=== PATIENT | male | born 1955 | race Caucasian/White ===

== ENCOUNTER 2017-02-25 07:30 | Inpatient (IN) | payer OTHER ==
[2017-02-25] VITALS (16 sets, daily range): BP systolic 124–136; BP diastolic 60–92; PULSE 68–102; RESP 18–20; TEMP 94.5–96.4; O2SAT 100
[2017-02-25] MEDS ORDERED: ceFAZolin 2 GM PREMIX 50 ML ONE ×2 (07:33→11:02)
[2017-02-25] MEDS ORDERED: DIPHTH/TETANUS/ACEL PERTUSSIS (BOOSTER) 0.5 ML VIAL/PFS IM ONE (07:34)
[2017-02-25] MEDS ORDERED: PROPOFOL 1000 MG/100 ML INJ 100 ML ONE ×2 (07:35→08:33)
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
[2017-02-25] MEDS ORDERED: MANNITOL INJ 0 ML ONE (07:58)
[2017-02-25] MEDS ORDERED: NALOXONE HCL 0.4 MG/ML AMP IV PUSH PRN (08:00)
[2017-02-25] MEDS ORDERED: NOREPINEPHRINE 4 MG/4 ML AMP ONE (08:00)
[2017-02-25] MEDS ORDERED: PROPOFOL 1000 MG/100 ML INJ 100 ML IV PRN (08:00)
[2017-02-25] MEDS ORDERED: ONDANSETRON HCL 4 MG/2 ML VIAL IV PRN (08:00)
[2017-02-25] MEDS ORDERED: SODIUM CHLORIDE 0.9% FLUSH 10 ML FLUSH IV FLUSH PRN (08:00)
[2017-02-25] MEDS ORDERED: Post-op Orders (for Pharmacy) MISC XX ONE (08:00)
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
[2017-02-25] MEDS ORDERED: IOHEXOL 350 MG/ML 10 ML VIAL (for RAD DIAG) IVCONTRAST ONE ×2 (08:03→10:19)
[2017-02-25] MEDS ORDERED: MIDAZOLAM HCL 5 MG/ML VIAL (1 ML) ONE (08:17)
[2017-02-25] MEDS ORDERED: SUCCINYLCHOLINE CHLORIDE 200 MG/10 ML VIAL ONE (08:27)
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
[2017-02-25] MEDS ORDERED: MIDAZOLAM 100 MG/100 ML INJ 100 ML IV PRN (09:00)
[2017-02-25] MEDS ORDERED: fentaNYL DRIP 250 ML IV PRN (09:00)
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
[2017-02-25 09:10] LABS: AUTOMATED NEUTROPHIL # 12.1 TH/MM3 (1.8-7.7); BASOPHIL # 0.1 TH/MM3 (0-0.2); BASOPHIL % 0.7 % (0.0-2.0); EOSINOPHIL # 0.6 TH/MM3 (0-0.4); EOSINOPHIL % 3.7 % (0.0-4.0); HEMATOCRIT 40.7 % (39.0-51.0); HEMO FLAGS DIFF FINAL; LYMPH % 14.2 % (9.0-44.0); LYMPHOCYTE # 2.3 TH/MM3 (1.0-4.8); MEAN CELL VOLUME 92.2 FL (80.0-100.0); MEAN CORPUSCULAR HEMOGLOBIN 30.7 PG (27.0-34.0); MEAN CORPUSCULAR HGB CONC 33.3 % (32.0-36.0); MONO % 4.8 % (0.0-8.0); NEUT % 76.6 % (16.0-70.0); PLATELET COUNT 240 TH/MM3 (150-450); PROTHROMBIN TIME - PATIENT 10.9 SEC (9.8-11.6); RED BLOOD COUNT 4.41 MIL/MM3 (4.50-5.90); RED CELL DISTRIBUTION WIDTH 14.1 % (11.6-17.2); WHITE BLOOD COUNT 15.9 TH/MM3 (4.0-11.0)
[2017-02-25] MEDS ORDERED: levETIRAcetam 1000 MG INJ 100 ML IV ONE (09:15)
[2017-02-25 09:16] LABS: I-STAT POTASSIUM 3.1 MMOL/L (3.5-4.9); I-STAT SODIUM 141 MMOL/L (138-146)
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
[2017-02-25] MEDS ORDERED: POTASSIUM PHOSPHATE INJ 30 MMOL in SODIUM CHLOR 0.9% 250 ML INJ 250 ML IV PRN (09:30)
[2017-02-25] MEDS ORDERED: POTASSIUM PHOSPHATE MONOBASIC 500 MG TAB PO/TUBE PRN (09:30)
[2017-02-25] MEDS ORDERED: POTASSIUM CHLOR 40 MEQ PREMIX 100 ML IV PRN (09:30)
[2017-02-25] MEDS ORDERED: POTASSIUM PHOSPHATE MONOBASIC 500 MG TAB PO PRN (09:30)
[2017-02-25] MEDS ORDERED: MAGNESIUM OXIDE 400 MG TAB PO PRN (09:30)
[2017-02-25] MEDS ORDERED: POTASSIUM CHLORIDE 25 MEQ EFFERVESCENT TAB PO PRN (09:30)
[2017-02-25] MEDS ORDERED: MAGNESIUM SULFATE INJ 4 GM in SODIUM CHLORIDE 0.9% INJ 92 ML IV PRN (09:30)
[2017-02-25] MEDS ORDERED: POTASSIUM CHLOR 20 MEQ PREMIX 100 ML IV PRN ×2 (09:30)
[2017-02-25] MEDS ORDERED: SODIUM PHOSPHATE INJ 30 MMOL in SODIUM CHLOR 0.9% 250 ML INJ 240 ML IV PRN (09:30)
[2017-02-25] MEDS ORDERED: MAGNESIUM SULFATE INJ 2 GM in SODIUM CHLORIDE 0.9% INJ 96 ML IV PRN (09:30)
[2017-02-25 09:45] LABS: ALT (GPT) 29 U/L (12-78); ANION GAP 10 MEQ/L (5-15); CHLORIDE 107 MEQ/L (98-107); GLOMERULAR FILTRATION RATE 57 ML/MIN (>89); MAGNESIUM 2.3 MG/DL (1.5-2.5); POTASSIUM 3.1 MEQ/L (3.5-5.1); SODIUM (NA) 139 MEQ/L (136-145)
[2017-02-25] MEDS ORDERED: ROCURONIUM INJ 50 MG/5 ML VIAL ONE (09:46)
[2017-02-25] MEDS ORDERED: GENTAMICIN SULFATE 80 MG/2 ML VIAL ONE (09:49)
[2017-02-25] MEDS ORDERED: LIDOCAINE 2%/EPINEPHrine PF 1:200,000 20ML SDV ONE (09:49)
[2017-02-25] MEDS ORDERED: THROMBIN (TOPICAL) 5,000 UNIT VIAL ONE (09:49)
[2017-02-25] MEDS ORDERED: GELFOAM SIZE 100 ONE (09:49)
[2017-02-25 09:58] LABS: ALKALINE PHOSPHATASE 65 U/L (45-117); AST (GOT) 31 U/L (15-37); BLOOD UREA NITROGEN 12 MG/DL (7-18); TOTAL BILIRUBIN ADULT 0.4 MG/DL (0.2-1.0)
[2017-02-25 09:58] LABS: BLOOD GAS BASE EXCESS -4.6 mmol/L (-2-2); BLOOD GAS CARBOXYHEMOGLOBIN 1.5 % (0-4); BLOOD GAS HCO3 21 mmol/L (22-26); BLOOD GAS O2 HGB SATURATION 98 % (90-100); BLOOD GAS OXYGEN CONTENT 18.2 Vol % (12.0-20.0); BLOOD GAS PCO2 43 mmHg (38-42); BLOOD GAS PO2 529 mmHg (61-120); BLOOD GAS TOTAL HGB 12.3 G/DL (12.0-16.0); TEMP CORR TO 98.6
[2017-02-25] MEDS: PANTOPRAZOLE SODIUM 40 MG VIAL IV SCH (09:58)
[2017-02-25 09:59] LABS: CRITICAL VALUE NO; DRAW SITE RT RADIAL; FIO2 100 %; NUMBER OF ARTERIAL PUNCTURES 1; STAT NO; ULNAR PULSE Y; VENT SETTINGS AC20/600/PEEP5
[2017-02-25] MEDS: SODIUM CHLOR 0.9% 1000 ML INJ 1,000 ML IV SCH ×2 (10:00→18:00)
[2017-02-25] MEDS ORDERED: SODIUM CHLORIDE 23.4% INJ 240 MEQ in SYRINGE/BAG 1 EA IV ONE (10:00)
[2017-02-25] MEDS ORDERED: RESP: ALBUTEROL 2.5 MG/IPRATROPIUM 0.5 MG NEB (PRN) NEB (10:00)
[2017-02-25] MEDS: SODIUM CHLORIDE 0.9% FLUSH 10 ML FLUSH IV FLUSH SCH ×2 (10:00→20:29)
[2017-02-25] MEDS ORDERED: 3% SALINE INJ 500 ML IV ONE (10:00)
[2017-02-25] MEDS: MIDAZOLAM 100 MG/NS 100 ML DRIP Premix IV PRN (10:01)
[2017-02-25] MEDS: fentaNYL 2,500 MCG/NS 250 ML IV PRN (10:01)
--- NOTE | 2017-02-25 10:04 | RADRPT ---
EXAM DATE/TIME: 02/25/2017 09:21 [facility] COMPARISON: CHEST SINGLE AP, February 25, 2017, 7:23. INDICATIONS : Central line placement. MEDICAL HISTORY : Unobtainable. SURGICAL HISTORY : Unobtainable. ENCOUNTER: Subsequent ACUITY: 1 day PAIN SCORE: Non-responsive. LOCATION: Bilateral chest FINDINGS: A single view of the chest demonstrates the lungs to be symmetrically aerated without evidence of mas s, infiltrate or effusion. Endotracheal tube unchanged. Left subclavian central line with tip in the SVC. The cardiomediastinal contours are unremarkable. Osseous structures are intact. CONCLUSION: No acute disease. Adequate placement of left subclavian central line. Biju Llamas MD on February 25, 2017 at 10:01 Board Certified Radiologist. This report was verified electronically.
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
[2017-02-25] MEDS ORDERED: IODIXANOL 320 MG/ML 10 ML VIAL (for Rad CT) IV ONE (11:11)
[2017-02-25 11:12] LABS: AUTOMATED NEUTROPHIL # 12.7 TH/MM3 (1.8-7.7); BASOPHIL % 0.1 % (0.0-2.0); EOSINOPHIL % 0.3 % (0.0-4.0); HEMATOCRIT 34.1 % (39.0-51.0); HEMO FLAGS DIFF FINAL; LYMPHOCYTE # 0.9 TH/MM3 (1.0-4.8); MEAN CELL VOLUME 92.4 FL (80.0-100.0); MEAN CORPUSCULAR HEMOGLOBIN 30.7 PG (27.0-34.0); MEAN CORPUSCULAR HGB CONC 33.2 % (32.0-36.0); NEUT % 88.6 % (16.0-70.0); PLATELET COUNT 163 TH/MM3 (150-450); RED BLOOD COUNT 3.69 MIL/MM3 (4.50-5.90); RED CELL DISTRIBUTION WIDTH 14.2 % (11.6-17.2); WHITE BLOOD COUNT 14.3 TH/MM3 (4.0-11.0)
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
[2017-02-25] MEDS ORDERED: ROCURONIUM INJ 50 MG/5 ML VIAL IV ONE (12:00)
[2017-02-25] MEDS ORDERED: PROPOFOL 200 MG/20 ML AMP IV ONE (12:00)
[2017-02-25] MEDS ORDERED: PHENYLEPH/NS 1000 MCG/10 ML SYR IV ONE (12:00)
[2017-02-25] MEDS ORDERED: NORMOSOL R INJ 2,000 ML IV ONE (12:00)
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
[2017-02-25] MEDS ORDERED: NOREPINEPHRINE INJ 4 MG in SODIUM CHLOR 0.9% 250 ML INJ 246 ML IV PRN (12:45)
[2017-02-25] MEDS ORDERED: TERBUTALINE INJ 1 MG/ML AMP SQ PRN (12:45)
--- NOTE | 2017-02-25 12:49 | PD.OP ---
Operative Report Date of Surgery: Feb 25, 2017 Preoperative Diagnosis: (1) Subdural hematoma, acute 1. Traumatic brain injury 2. acute left hemisphere subdural hematoma Postoperative Diagnosis: (1) Traumatic subdural hematoma 1. Traumatic brain injury 2. acute left hemisphere subdural hematoma Procedure: Left frontotemporoparietal decompressive craniotomy Evacuation acute left hemisphere subdural hematoma Anesthesia: Gen. Surgeon: Travis Cronin Program Support Specialist(s): Juan Henry Operation and Findings: Indications: Trauma alert patient with initial CT scan with thin left hemisphere subdural hematoma without significant mass effect. Emergency ICP monitor placed in the intensive surgical care unit with ICPs in the 40-50 range. Emergency follow-up CT scan of the head accomplished revealing significant expansion of the left subdural hematoma to approximately 2 cm thickness with significant midline shift. She will brought emergently to the operating room for craniotomy for evacuation of hematoma. Procedure in detail: The patient was brought into the operating room and general endotracheal anesthesia induced without difficulty. The Montes catheter, and sequential compression devices were in place. The lines were established per anesthesia. The patient was placed in semilateral position on the 3080 table with the head on the horseshoe headrest. All extremities were appropriately padded Appropriate timeout procedure was performed with all personnel present and in agreement The left side of the head was shaved with the clippers and sterilely prepped and draped 1% Xylocaine was used for local infiltration over the incision site which was made over the left frontotemporal parietal area in a curvilinear fashion and carried sharply down to the cranium through the temporalis muscle and fascia. The scalp and temporalis muscle flap were elevated in a single laye with the periosteal elevator and retracted r over a laparotomy sponge with the large scalp hooks. The lens polisher was used to place a single bur hole in the posterior left frontoparietal region and the craniotome was used since to incise the bone flap. The dura was moderately tense upon removal of the bone flap. The dura was opened in a cruciate fashion and the edges retracted with 4-0 Nurolon suture. The large underlying subdural hematoma was evacuated with gentle suction and irrigation until clear The bipolar forceps were used to control any bleeding at the operative site. There was significant contusion of the left lateral anterior temporal lobe adjacent to the sylvian fissure. A small cortical arterial bleeder in this region was coagulated with bipolar forceps. Further bleeding from a torn bridging vein along with smaller areas of bleeding from the contused brain parenchyma was also controlled with bipolar forceps. The brain was soft and pulsatile at the time of closure. It was elected to leave the bone flap out and the dura opened to allow for cerebral edema. A 7 mm flat fluted drain was left in place in the subdural space A 7 mm flat fluted drain was left in place in the subgaleal space The drains were brought out through incisions in the posterior parietal region and secured to the skin with nylon suture The closure was performed with 2-0 Vicryl for the temporalis muscle fascia and galeal closure and angelito for the skin closure. A dressing of sterile Telfa, 4 x 4's, and a loose head stockinette was applied. The patient was taken to recovery room in stable condition All counts were correct at the end of the case. Estimated blood loss was 200 cc No specimen was sent to pathology Travis Cronin MD Feb 25, 2017 12:49
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
[2017-02-25] MEDS: POTASSIUM CHLOR 40 MEQ PREMIX 100 ML IV PRN (13:40)
[2017-02-25 13:50] LABS: BASOPHIL % 0.2 % (0.0-2.0); EOSINOPHIL # 0.2 TH/MM3 (0-0.4); EOSINOPHIL % 0.8 % (0.0-4.0); HEMATOCRIT 32.4 % (39.0-51.0); LYMPH % 10.9 % (9.0-44.0); LYMPHOCYTE # 2.3 TH/MM3 (1.0-4.8); MEAN CELL VOLUME 91.3 FL (80.0-100.0); MEAN CORPUSCULAR HEMOGLOBIN 29.8 PG (27.0-34.0); MEAN CORPUSCULAR HGB CONC 32.6 % (32.0-36.0); MONO % 6.6 % (0.0-8.0); NEUT % 81.5 % (16.0-70.0); PLATELET COUNT 212 TH/MM3 (150-450); RED BLOOD COUNT 3.54 MIL/MM3 (4.50-5.90); RED CELL DISTRIBUTION WIDTH 13.9 % (11.6-17.2); WHITE BLOOD COUNT 20.8 TH/MM3 (4.0-11.0)
[2017-02-25 13:52] LABS: HEMO FLAGS AUTO DIFF
[2017-02-25] MEDS ORDERED: PHENYLEPHRINE 40 MG in D5W 500 ML IV PRN (14:00)
[2017-02-25 14:12] LABS: BLOOD GAS BASE EXCESS -7.1 mmol/L (-2-2); BLOOD GAS CARBOXYHEMOGLOBIN 1.2 % (0-4); BLOOD GAS HCO3 18 mmol/L (22-26); BLOOD GAS METHEMOGLOBIN 0.7 % (0-2); BLOOD GAS O2 HGB SATURATION 97 % (90-100); BLOOD GAS OXYGEN CONTENT 13.4 Vol % (12.0-20.0); BLOOD GAS PCO2 33 mmHg (38-42); BLOOD GAS PO2 174 mmHg (61-120); BLOOD GAS TOTAL HGB 9.5 G/DL (12.0-16.0); CRITICAL VALUE NO; OXYGEN DEVICE VENTILATOR; TEMP CORR TO 98.6; VENT SETTINGS AC20/600/PEEP5
[2017-02-25 14:13] LABS: DRAW SITE ART LINE; FIO2 50 %; STAT NO
[2017-02-25 14:36] LABS: SCAN/DIFF AUTO DIFF CONFIRMED
[2017-02-25] MEDS ORDERED: LIDOCAINE 2%/EPINEPHrine 1:100,000 20ML MDV INFIL ONE (15:00)
--- NOTE | 2017-02-25 15:27 | EKG ---
Date Performed: 02/25/2017 Time Performed: 07:36:37 PTAGE: 89 years EKG: SINUS TACHYCARDIA ABNORMAL RHYTHM ECG INTERPRETATION BASED ON A DEFAULT AGE OF 40 YEARS NO PREVIOUS TRACING DOCTOR: Sky Morley Interpretating Date/Time 02/25/2017 15:25:43
[2017-02-25] MEDS: PIPERACIL-TAZO 3.375 GM PREMIX 50 ML IV SCH ×2 (15:55→20:29)
[2017-02-25] MEDS: RESP: ALBUTEROL 2.5 MG/IPRATROPIUM 0.5 MG NEB (SCH) NEB ×2 (15:56→20:01)
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
[2017-02-25] MEDS: MAGNESIUM HYDROXIDE SUSP 30 ML CUP PO SCH ×2 (20:29→20:40)
[2017-02-25] MEDS: DOCUSATE SODIUM 100 MG/10 ML UDC PO SCH ×2 (20:29→20:40)
[2017-02-25] MEDS: CHLORHEXIDINE 0.12% (ORAL KIT) 15 ML CUP MT SCH (20:29)
[2017-02-25] MEDS: levETIRAcetam 1000 MG INJ 100 ML IV SCH (20:29)
[2017-02-26] VITALS (22 sets, daily range): BP systolic 120–142; BP diastolic 52–69; PULSE 46–75; RESP 18; TEMP 93.9–97.3; O2SAT 98–100
[2017-02-26] MEDS: MIDAZOLAM 100 MG/NS 100 ML DRIP Premix IV PRN (01:22)
[2017-02-26] MEDS: 3% SALINE INJ 500 ML IV SCH ×2 (01:54→17:51)
[2017-02-26] MEDS: RESP: ALBUTEROL 2.5 MG/IPRATROPIUM 0.5 MG NEB (SCH) NEB ×4 (03:24→19:57)
[2017-02-26] MEDS: SODIUM CHLOR 0.9% 1000 ML INJ 1,000 ML IV SCH ×3 (04:13→17:51)
[2017-02-26] MEDS: PIPERACIL-TAZO 3.375 GM PREMIX 50 ML IV SCH ×4 (04:34→21:17)
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
[2017-02-26 06:19] LABS: AUTOMATED NEUTROPHIL # 7.7 TH/MM3 (1.8-7.7); BASOPHIL % 0.2 % (0.0-2.0); HEMATOCRIT 28.3 % (39.0-51.0); HEMO FLAGS DIFF FINAL; LYMPH % 5.4 % (9.0-44.0); LYMPHOCYTE # 0.5 TH/MM3 (1.0-4.8); MEAN CELL VOLUME 93.2 FL (80.0-100.0); MEAN CORPUSCULAR HEMOGLOBIN 31.4 PG (27.0-34.0); MEAN CORPUSCULAR HGB CONC 33.7 % (32.0-36.0); MONO % 6.2 % (0.0-8.0); NEUT % 88.2 % (16.0-70.0); PLATELET COUNT 155 TH/MM3 (150-450); RED BLOOD COUNT 3.04 MIL/MM3 (4.50-5.90); RED CELL DISTRIBUTION WIDTH 14.2 % (11.6-17.2); WHITE BLOOD COUNT 8.7 TH/MM3 (4.0-11.0)
[2017-02-26 06:38] LABS: BICARBONATE 22.6 MEQ/L (21.0-32.0); POTASSIUM 4.1 MEQ/L (3.5-5.1)
[2017-02-26 06:50] LABS: CALCIUM-PROTEIN CORRECTED 7.9 MG/DL (8.5-10.1)
[2017-02-26] MEDS: CHLORHEXIDINE 0.12% (ORAL KIT) 15 ML CUP MT SCH ×2 (08:00→20:23)
[2017-02-26] MEDS: fentaNYL 2,500 MCG/NS 250 ML IV PRN (08:20)
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
[2017-02-26] MEDS: DOCUSATE SODIUM 100 MG/10 ML UDC PO SCH ×2 (09:00→20:24)
[2017-02-26] MEDS: SODIUM CHLORIDE 0.9% FLUSH 10 ML FLUSH IV FLUSH SCH ×2 (09:00→20:23)
[2017-02-26] MEDS: LACTULOSE SYRUP 20 GM/30 ML CUP PO SCH (09:00)
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
[2017-02-26] MEDS: levETIRAcetam 1000 MG INJ 100 ML IV SCH ×2 (09:35→20:23)
[2017-02-26] MEDS: PANTOPRAZOLE SODIUM 40 MG VIAL IV SCH (09:36)
[2017-02-26] MEDS ORDERED: IOHEXOL 350 MG/ML 10 ML VIAL (for RAD DIAG) IVCONTRAST ONE (10:44)
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
--- NOTE | 2017-02-26 13:57 | RADRPT ---
EXAM DATE/TIME: 02/26/2017 13:34 [facility] COMPARISON: CT BRAIN W/O CONTRAST, February 25, 2017, 10:03. CT BRAIN W/O CONTRAST, February 25, 2017, 7:49. INDICATIONS : Subdural hematoma. RADIATION DOSE: 64.98 CTDIvol (mGy) MEDICAL HISTORY : None SURGICAL HISTORY : Vasectomy. ENCOUNTER: Subsequent ACUITY: 2 days PAIN SCALE: Non-responsive LOCATION: cranial TECHNIQUE: Multiple contiguous axial images were obtained of the head. Using automated exposure control and adj ustment of the mA and/or kV according to patient size, radiation dose was kept as low as reasonably a chievable to obtain optimal diagnostic quality images. DICOM format image data is available electro nically for review and comparison. FINDINGS: There is interim left posterior frontal parietal craniotomy with evacuation of the subdural hematoma. There is a small amount of residual air in the temporal region with a drain in place into the latera l and anterior temporal region. The midline shift from left to right is reduced from 2 cm now 6 mm. T here is brainstem hemorrhage and middle cerebral peduncle hemorrhage with blood along the tentorium a nd obscuration of the fourth ventricle. Hemorrhage is noted in the third ventricle and layering poste riorly next several horns. There is subarachnoid hemorrhage in along the vertex particularly on the r ight and extending along the parietal region into the [place] mesencephalic and sylvian fissures. [place] parenchymal contusion is noted in the left temporal lobe anterior right temporal lobe and in the brainstem as well as the left middle cerebellar peduncle. Ventricles are otherwise normal size. Pres sure monitor in place on the right. CONCLUSION: Postsurgical changes of left craniotomy reduction of the left subdural hematoma. Midline shift from l eft to right is reduced from 2 cm to now 6 mm with subarachnoid blood as described above as well as p arenchymal contusions in the left and right temporal lobes as well as the brainstem with obliteration obscuration of the fourth ventricle. Subarachnoid hemorrhage additionally appreciated bilaterally an d in the interhemispheric fissure Maurisio Campbell MD on February 26, 2017 at 13:51 Board Certified Radiologist. This report was verified electronically.
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
--- NOTE | 2017-02-26 16:43 | MG ---
cc: DARRIAN HEARN M.D. Lab No: Date: 02/26/2017 Age: Sex: M Race: HISTORY: An EEG was obtained on this [place] patient intubated with history of left frontoparietal craniotomy for subdural. MEDICATIONS Protonix Mannitol. The patient was on fentanyl and Versed. The EEG shows continuous higher amplitude left hemisphere rhythms with some intermixed beta activity, also of higher amplitude. There are some sharp looking discharges. This is most suggestive of a bridge rhythm. This seems to be compatible with the provided history of surgery. There are alpha and beta rhythms on the right hemisphere which are somewhat poorly reactive. Photic stimulation disclosed no change. INTERPRETATION Abnormal EEG because of left hemisphere higher amplitude rhythms probably representation of breach rhythm type of activity from the craniotomy. Difficult to discern any associated sharp discharges from an epileptiform nature but no ictal pattern present. There are nearly normal-looking alpha and beta rhythms on the right but this appears to be poorly reactive activity, it may be related to his apparent comatose state. Continue neurologic monitoring and possible follow-up EEG's. MD RUFINA Toscano/ /2:48 PM /4:30 PM
[2017-02-26] MEDS: MAGNESIUM HYDROXIDE SUSP 30 ML CUP PO SCH (20:24)
[2017-02-27] VITALS (20 sets, daily range): BP systolic 134–174; BP diastolic 52–77; PULSE 50–74; RESP 16–22; TEMP 97.3–99.3; O2SAT 99–100
[2017-02-27] MEDS: SODIUM CHLOR 0.9% 1000 ML INJ 1,000 ML IV SCH ×3 (03:05→18:29)
[2017-02-27] MEDS: PIPERACIL-TAZO 3.375 GM PREMIX 50 ML IV SCH ×4 (03:05→21:45)
[2017-02-27] MEDS: RESP: ALBUTEROL 2.5 MG/IPRATROPIUM 0.5 MG NEB (SCH) NEB ×4 (03:35→22:01)
[2017-02-27 05:15] LABS: BLOOD GAS BASE EXCESS -3.4 mmol/L (-2-2); BLOOD GAS HCO3 20 mmol/L (22-26); BLOOD GAS METHEMOGLOBIN 0.8 % (0-2); BLOOD GAS O2 HGB SATURATION 98 % (90-100); BLOOD GAS OXYGEN CONTENT 12.1 Vol % (12.0-20.0); BLOOD GAS PCO2 32 mmHg (38-42); BLOOD GAS PO2 175 mmHg (61-120); BLOOD GAS TOTAL HGB 8.6 G/DL (12.0-16.0); CRITICAL VALUE NO; DRAW SITE ART LINE; FIO2 40 %; OXYGEN DEVICE VENTILATOR; STAT NO; TEMP CORR TO 98.6; VENT SETTINGS AC/20/550/PEEP 5
[2017-02-27 05:19] LABS: AUTOMATED NEUTROPHIL # 9.5 TH/MM3 (1.8-7.7); BASOPHIL % 0.1 % (0.0-2.0); EOSINOPHIL % 0.1 % (0.0-4.0); HEMATOCRIT 26.5 % (39.0-51.0); HEMO FLAGS DIFF FINAL; LYMPH % 5.4 % (9.0-44.0); LYMPHOCYTE # 0.6 TH/MM3 (1.0-4.8); MEAN CELL VOLUME 92.7 FL (80.0-100.0); MEAN CORPUSCULAR HEMOGLOBIN 31.1 PG (27.0-34.0); MEAN CORPUSCULAR HGB CONC 33.5 % (32.0-36.0); MONO % 6.1 % (0.0-8.0); NEUT % 88.3 % (16.0-70.0); PLATELET COUNT 148 TH/MM3 (150-450); RED BLOOD COUNT 2.86 MIL/MM3 (4.50-5.90); RED CELL DISTRIBUTION WIDTH 14.2 % (11.6-17.2); WHITE BLOOD COUNT 10.7 TH/MM3 (4.0-11.0)
[2017-02-27 05:45] LABS: BICARBONATE 21.7 MEQ/L (21.0-32.0); CALCIUM-PROTEIN CORRECTED 8.5 MG/DL (8.5-10.1); POTASSIUM 3.8 MEQ/L (3.5-5.1); TOTAL BILIRUBIN ADULT 0.3 MG/DL (0.2-1.0)
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
[2017-02-27] MEDS: PANTOPRAZOLE SODIUM 40 MG VIAL IV SCH (07:26)
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
[2017-02-27] MEDS: CHLORHEXIDINE 0.12% (ORAL KIT) 15 ML CUP MT SCH ×2 (08:00→20:46)
[2017-02-27] MEDS: levETIRAcetam 1000 MG INJ 100 ML IV SCH ×2 (08:14→20:46)
[2017-02-27] MEDS: LABETALOL HCL 100 MG/20 ML VIAL IV PUSH PRN ×2 (08:16→12:32)
[2017-02-27] MEDS: SODIUM CHLORIDE 0.9% FLUSH 10 ML FLUSH IV FLUSH SCH ×2 (09:00→20:46)
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
[2017-02-27] MEDS: LACTULOSE SYRUP 20 GM/30 ML CUP PO SCH (10:01)
[2017-02-27] MEDS: DOCUSATE SODIUM 100 MG/10 ML UDC PO SCH ×2 (10:01→20:46)
[2017-02-27] MEDS: 3% SALINE INJ 500 ML IV SCH (10:54)
--- NOTE | 2017-02-27 11:04 | RADRPT ---
EXAM DATE/TIME: 02/27/2017 09:48 [place] COMPARISON: No previous studies available for comparison. INDICATIONS : OG tube placement MEDICAL HISTORY : None. SURGICAL HISTORY : None. ENCOUNTER: Initial ACUITY: 1 day PAIN SCORE: Non-responsive. LOCATION: Bilateral upper quadrant FINDINGS: Single view of the abdomen demonstrates orogastric or nasogastric tube distal tip in the proximal sto mach. The sentinel hole is in the gastric cardia region. There is thoraco- lumbar scoliosis. Lung bas es are clear. CONCLUSION: Tube distal tip is in the proximal stomach. Khoa Henley MD on February 27, 2017 at 11:02 Board Certified Radiologist. This report was verified electronically.
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
[2017-02-27 13:28] LABS: BLOOD GAS BASE EXCESS -2.2 mmol/L (-2-2); BLOOD GAS CARBOXYHEMOGLOBIN 0.9 % (0-4); BLOOD GAS HCO3 22 mmol/L (22-26); BLOOD GAS METHEMOGLOBIN 0.9 % (0-2); BLOOD GAS O2 HGB SATURATION 98 % (90-100); BLOOD GAS OXYGEN CONTENT 11.8 Vol % (12.0-20.0); BLOOD GAS PCO2 35 mmHg (38-42); BLOOD GAS PO2 191 mmHg (61-120); BLOOD GAS TOTAL HGB 8.2 G/DL (12.0-16.0); CRITICAL VALUE NO; FIO2 40 %; OXYGEN DEVICE VENTILATOR; TEMP CORR TO 98.6
[2017-02-27 13:29] LABS: DRAW SITE ART LINE; STAT NO
[2017-02-27] MEDS: PROPOFOL 1000 MG/100 ML IV PRN ×2 (15:13→21:45)
[2017-02-27] MEDS: niCARdipine INJ 25 MG in SODIUM CHLOR 0.9% 250 ML INJ 240 ML IV PRN (15:23)
[2017-02-27] MEDS: MAGNESIUM HYDROXIDE SUSP 30 ML CUP PO SCH (20:46)
[2017-02-28] VITALS (19 sets, daily range): BP systolic 136–168; BP diastolic 52–74; PULSE 61–88; RESP 16; TEMP 96.3–97.9; O2SAT 100
[2017-02-28] MEDS: 3% SALINE INJ 500 ML IV SCH ×2 (01:17→18:00)
[2017-02-28] MEDS: RESP: ALBUTEROL 2.5 MG/IPRATROPIUM 0.5 MG NEB (SCH) NEB ×4 (03:16→20:26)
[2017-02-28 04:32] LABS: BLOOD GAS BASE EXCESS 1.2 mmol/L (-2-2); BLOOD GAS CARBOXYHEMOGLOBIN 1.1 % (0-4); BLOOD GAS HCO3 25 mmol/L (22-26); BLOOD GAS METHEMOGLOBIN 0.8 % (0-2); BLOOD GAS O2 HGB SATURATION 98 % (90-100); BLOOD GAS OXYGEN CONTENT 11.3 Vol % (12.0-20.0); BLOOD GAS PCO2 34 mmHg (38-42); BLOOD GAS PO2 158 mmHg (61-120); TEMP CORR TO 98.6
[2017-02-28 04:36] LABS: CRITICAL VALUE NO; OXYGEN DEVICE VENTILATOR
[2017-02-28 04:37] LABS: FIO2 35 %; VENT SETTINGS AC /16/550/PEEP5
[2017-02-28 04:38] LABS: DRAW SITE ART LINE; STAT NO
[2017-02-28] MEDS: PIPERACIL-TAZO 3.375 GM PREMIX 50 ML IV SCH ×4 (04:59→21:30)
[2017-02-28 05:37] LABS: AUTOMATED NEUTROPHIL # 7.6 TH/MM3 (1.8-7.7); BASOPHIL % 0.2 % (0.0-2.0); EOSINOPHIL % 0.5 % (0.0-4.0); HEMO FLAGS DIFF FINAL; LYMPH % 10.1 % (9.0-44.0); LYMPHOCYTE # 0.9 TH/MM3 (1.0-4.8); MEAN CORPUSCULAR HEMOGLOBIN 30.5 PG (27.0-34.0); MEAN CORPUSCULAR HGB CONC 33.1 % (32.0-36.0); MONO % 6.9 % (0.0-8.0); NEUT % 82.3 % (16.0-70.0); PLATELET COUNT 157 TH/MM3 (150-450); RED BLOOD COUNT 2.61 MIL/MM3 (4.50-5.90); RED CELL DISTRIBUTION WIDTH 14.4 % (11.6-17.2); WHITE BLOOD COUNT 9.2 TH/MM3 (4.0-11.0)
[2017-02-28] MEDS: CHLORHEXIDINE 0.12% (ORAL KIT) 15 ML CUP MT SCH ×2 (08:00→19:15)
[2017-02-28] MEDS: PANTOPRAZOLE SODIUM 40 MG VIAL IV SCH (08:26)
[2017-02-28] MEDS: levETIRAcetam 1000 MG INJ 100 ML IV SCH ×2 (08:26→19:34)
[2017-02-28] MEDS: LACTULOSE SYRUP 20 GM/30 ML CUP PO SCH (08:26)
[2017-02-28] MEDS: BISACODYL 10 MG SUPP RECTAL SCH (08:26)
[2017-02-28] MEDS: DOCUSATE SODIUM 100 MG/10 ML UDC PO SCH ×2 (08:26→19:33)
[2017-02-28] MEDS: SODIUM CHLORIDE 0.9% FLUSH 10 ML FLUSH IV FLUSH SCH ×2 (08:27→19:34)
[2017-02-28 09:10] LABS: ANION GAP 2 MEQ/L (5-15)
[2017-02-28 09:17] LABS: ALKALINE PHOSPHATASE 43 U/L (45-117); ALT (GPT) 17 U/L (12-78); AST (GOT) 20 U/L (15-37); BICARBONATE 28.3 MEQ/L (21.0-32.0); BLOOD UREA NITROGEN 10 MG/DL (7-18); CHLORIDE 127 MEQ/L (98-107); GLOMERULAR FILTRATION RATE 107 ML/MIN (>89); POTASSIUM 3.1 MEQ/L (3.5-5.1); TOTAL BILIRUBIN ADULT 0.3 MG/DL (0.2-1.0)
[2017-02-28 09:20] LABS: SODIUM (NA) 157 MEQ/L (136-145)
[2017-02-28] MEDS: POTASSIUM CHLOR 40 MEQ PREMIX 100 ML IV PRN (09:42)
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
[2017-02-28] MEDS: fentaNYL 25 MCG/HR PATCH T-DERMAL SCH (11:08)
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
[2017-02-28] MEDS: niCARdipine INJ 25 MG in SODIUM CHLOR 0.9% 250 ML INJ 240 ML IV PRN (12:43)
--- NOTE | 2017-02-28 14:00 | EKG ---
Date Performed: 02/27/2017 Time Performed: 14:15:22 PTAGE: 62 years EKG: Marked sinus arrhythmia Abnormal ECG PREVIOUS TRACING : 02/25/2017 07.36 Since previous tracing, sinus arrhythmia is new. DOCTOR: Ciro Deutsch Interpretating Date/Time 02/28/2017 13:58:58
[2017-02-28] MEDS: PROPOFOL 1000 MG/100 ML IV PRN (16:55)
[2017-02-28 18:08] LABS: POTASSIUM 3.7 MEQ/L (3.5-5.1)
[2017-02-28] MEDS: MAGNESIUM HYDROXIDE SUSP 30 ML CUP PO SCH (19:34)
[2017-03-01] VITALS (18 sets, daily range): BP systolic 130–162; BP diastolic 55–76; PULSE 58–73; RESP 16–19; TEMP 95.2–97.9; O2SAT 98–100
[2017-03-01] MEDS: PROPOFOL 1000 MG/100 ML IV PRN ×2 (02:23→12:47)
[2017-03-01] MEDS: RESP: ALBUTEROL 2.5 MG/IPRATROPIUM 0.5 MG NEB (SCH) NEB (03:42)
[2017-03-01] MEDS: PIPERACIL-TAZO 3.375 GM PREMIX 50 ML IV SCH ×4 (03:51→21:27)
[2017-03-01 04:10] LABS: AUTOMATED NEUTROPHIL # 6.2 TH/MM3 (1.8-7.7); BASOPHIL # 0.1 TH/MM3 (0-0.2); BASOPHIL % 0.7 % (0.0-2.0); EOSINOPHIL # 0.2 TH/MM3 (0-0.4); EOSINOPHIL % 2.3 % (0.0-4.0); HEMATOCRIT 25.3 % (39.0-51.0); HEMO FLAGS DIFF FINAL; LYMPH % 12.3 % (9.0-44.0); MEAN CELL VOLUME 92.7 FL (80.0-100.0); MEAN CORPUSCULAR HEMOGLOBIN 31.4 PG (27.0-34.0); MEAN CORPUSCULAR HGB CONC 33.9 % (32.0-36.0); MONO % 6.5 % (0.0-8.0); NEUT % 78.2 % (16.0-70.0); PLATELET COUNT 170 TH/MM3 (150-450); RED BLOOD COUNT 2.73 MIL/MM3 (4.50-5.90); RED CELL DISTRIBUTION WIDTH 14.4 % (11.6-17.2); WHITE BLOOD COUNT 7.9 TH/MM3 (4.0-11.0)
--- NOTE | 2017-03-01 04:36 | RADRPT ---
EXAM DATE/TIME: 03/01/2017 04:14 [place] COMPARISON: No previous studies available for comparison. INDICATIONS : Follow up trauma; subdural hematoma. RADIATION DOSE: 54.78 CTDIvol (mGy) ; Tabletop CT Head MEDICAL HISTORY : None SURGICAL HISTORY : Vasectomy. ENCOUNTER: Subsequent ACUITY: 4 - 6 days PAIN SCALE: Non-responsive LOCATION: cranial TECHNIQUE: Multiple contiguous axial images were obtained of the head. Using automated exposure control and adj ustment of the mA and/or kV according to patient size, radiation dose was kept as low as reasonably a chievable to obtain optimal diagnostic quality images. DICOM format image data is available electro nically for review and comparison. FINDINGS: Again seen are postoperative changes of a decompressive partial left-sided craniectomy. Right frontal pressure monitor present. There is some persistent subarachnoid hemorrhage over both convexities and intraventricular hemorrhage which is relatively stable. Hemorrhagic contusions in the temporal lobes again noted. Brainstem hemorrhage is evolving. No new intracranial hemorrhage. There is fluid/hemorrhage in the paranasal sinuses. Anterior facial fractures are stable. CONCLUSION: 1. No new hemorrhage or mass effect. Approximately 5 mm left to right midline shift is roughly stable compared to the previous measurement of 6 mm. Scattered hemorrhage in the brain and brainstem is rel atively stable. James Eagle MD on March 01, 2017 at 4:30 Board Certified Radiologist. This report was verified electronically.
--- NOTE | 2017-03-01 04:38 | RADRPT ---
EXAM DATE/TIME: 03/01/2017 03:10 [place] COMPARISON: CHEST SINGLE AP, February 27, 2017, 4:23. INDICATIONS : Short of breath. MEDICAL HISTORY : None. SURGICAL HISTORY : None. ENCOUNTER: Subsequent ACUITY: 4 - 6 days PAIN SCORE: 0/10 LOCATION: Bilateral chest FINDINGS: A single view of the chest demonstrates endotracheal tube tip in good position. Nasogastric tube ente rs stomach. A central line in superior vena cava. CONCLUSION: 1. Support apparatus in good position. Minimal basal atelectasis. James Eagle MD on March 01, 2017 at 4:36 Board Certified Radiologist. This report was verified electronically.
[2017-03-01 04:52] LABS: ALKALINE PHOSPHATASE 58 U/L (45-117); ALT (GPT) 34 U/L (12-78); ANION GAP 5 MEQ/L (5-15); AST (GOT) 34 U/L (15-37); BICARBONATE 26.6 MEQ/L (21.0-32.0); BLOOD UREA NITROGEN 9 MG/DL (7-18); CHLORIDE 125 MEQ/L (98-107); GLOMERULAR FILTRATION RATE 122 ML/MIN (>89); POTASSIUM 3.4 MEQ/L (3.5-5.1); TOTAL BILIRUBIN ADULT 0.4 MG/DL (0.2-1.0)
[2017-03-01 05:18] LABS: BLOOD GAS BASE EXCESS 0.9 mmol/L (-2-2); BLOOD GAS CARBOXYHEMOGLOBIN 1.1 % (0-4); BLOOD GAS HCO3 25 mmol/L (22-26); BLOOD GAS METHEMOGLOBIN 0.8 % (0-2); BLOOD GAS O2 HGB SATURATION 97 % (90-100); BLOOD GAS OXYGEN CONTENT 14.9 Vol % (12.0-20.0); BLOOD GAS PCO2 36 mmHg (38-42); BLOOD GAS PO2 112 mmHg (61-120); BLOOD GAS TOTAL HGB 10.8 G/DL (12.0-16.0); CRITICAL VALUE NO; OXYGEN DEVICE VENTILATOR; TEMP CORR TO 98.6; VENT SETTINGS AC/16/550/PEEP5
[2017-03-01 05:19] LABS: DRAW SITE ART LINE; FIO2 30 %; STAT NO; ULNAR PULSE PRESENT
[2017-03-01 05:22] LABS: SODIUM (NA) 157 MEQ/L (136-145)
[2017-03-01] MEDS: DOCUSATE SODIUM 100 MG/10 ML UDC PO SCH ×2 (07:47→20:38)
[2017-03-01] MEDS: levETIRAcetam 1000 MG INJ 100 ML IV SCH ×2 (07:47→20:45)
[2017-03-01] MEDS: CHLORHEXIDINE 0.12% (ORAL KIT) 15 ML CUP MT SCH ×2 (07:47→20:00)
[2017-03-01] MEDS: SODIUM CHLORIDE 0.9% FLUSH 10 ML FLUSH IV FLUSH SCH ×2 (07:47→20:38)
[2017-03-01] MEDS: PANTOPRAZOLE SODIUM 40 MG VIAL IV SCH (07:47)
[2017-03-01] MEDS: BISACODYL 10 MG SUPP RECTAL SCH (07:48)
[2017-03-01] MEDS: LACTULOSE SYRUP 20 GM/30 ML CUP PO SCH (07:48)
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
[2017-03-01] MEDS: SODIUM CHLOR 0.9% 1000 ML INJ 1,000 ML IV SCH (10:00)
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
--- NOTE | 2017-03-01 12:13 | PD.CONS ---
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 personally performed the exam, history, and/or decision-making noted today, and, unless otherwise indicated, the interactions with patient, family, and staff as well as the review of records all occurred today. I also attest that the listed assessment and stated plan reflect my best clinical judgment today based on the combination of historical information, prior notes, and today's exam/ interactions. When time spent is documented, it refers only to time spent today by the signer, or if indicated, combined time spent today by collaborating physician/nurse practitioner. Katherine Ayala Mar 01, 2017 12:13
[2017-03-01] MEDS: LABETALOL HCL 100 MG/20 ML VIAL IV PUSH PRN (17:02)
[2017-03-01] MEDS: MAGNESIUM HYDROXIDE SUSP 30 ML CUP PO SCH (20:38)
[2017-03-02] VITALS (21 sets, daily range): BP systolic 136–167; BP diastolic 53–79; PULSE 61–91; RESP 16; TEMP 97.9–99.9; O2SAT 96–100
[2017-03-02] MEDS: PROPOFOL 1000 MG/100 ML IV PRN ×3 (00:02→20:27)
[2017-03-02 01:29] LABS: BLOOD GAS CARBOXYHEMOGLOBIN 1.3 % (0-4); BLOOD GAS HCO3 25 mmol/L (22-26); BLOOD GAS METHEMOGLOBIN 0.8 % (0-2); BLOOD GAS O2 HGB SATURATION 97 % (90-100); BLOOD GAS OXYGEN CONTENT 12.6 Vol % (12.0-20.0); BLOOD GAS PCO2 34 mmHg (38-42); BLOOD GAS PO2 115 mmHg (61-120); BLOOD GAS TOTAL HGB 9.1 G/DL (12.0-16.0); CRITICAL VALUE NO; OXYGEN DEVICE VENTILATOR; TEMP CORR TO 98.6
[2017-03-02 01:30] LABS: DRAW SITE ART LINE; FIO2 30 %; STAT NO; ULNAR PULSE PRESENT; VENT SETTINGS AC16/550/PEEP5
[2017-03-02] MEDS: PIPERACIL-TAZO 3.375 GM PREMIX 50 ML IV SCH (04:16)
[2017-03-02 05:45] LABS: BASOPHIL % 0.4 % (0.0-2.0); EOSINOPHIL # 0.2 TH/MM3 (0-0.4); HEMATOCRIT 24.5 % (39.0-51.0); HEMO FLAGS DIFF FINAL; LYMPH % 10.1 % (9.0-44.0); LYMPHOCYTE # 0.8 TH/MM3 (1.0-4.8); MEAN CELL VOLUME 92.5 FL (80.0-100.0); MEAN CORPUSCULAR HGB CONC 33.5 % (32.0-36.0); MONO % 6.8 % (0.0-8.0); NEUT % 79.7 % (16.0-70.0); PLATELET COUNT 168 TH/MM3 (150-450); RED BLOOD COUNT 2.65 MIL/MM3 (4.50-5.90); RED CELL DISTRIBUTION WIDTH 14.6 % (11.6-17.2); WHITE BLOOD COUNT 7.6 TH/MM3 (4.0-11.0)
[2017-03-02 06:10] LABS: ANION GAP 7 MEQ/L (5-15); AST (GOT) 40 U/L (15-37); BICARBONATE 27.3 MEQ/L (21.0-32.0); BLOOD UREA NITROGEN 13 MG/DL (7-18); CHLORIDE 121 MEQ/L (98-107); GLOMERULAR FILTRATION RATE 98 ML/MIN (>89); POTASSIUM 3.6 MEQ/L (3.5-5.1); SODIUM (NA) 155 MEQ/L (136-145)
[2017-03-02 06:12] LABS: ALT (GPT) 49 U/L (12-78)
[2017-03-02 06:13] LABS: ALKALINE PHOSPHATASE 70 U/L (45-117); TOTAL BILIRUBIN ADULT 0.7 MG/DL (0.2-1.0)
[2017-03-02] MEDS ORDERED: BISACODYL 10 MG SUPP RECTAL PRN (07:45)
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
[2017-03-02] MEDS: CHLORHEXIDINE 0.12% (ORAL KIT) 15 ML CUP MT SCH ×2 (08:00→20:28)
[2017-03-02] MEDS: SODIUM CHLORIDE 0.9% FLUSH 10 ML FLUSH IV FLUSH SCH ×2 (08:01→20:28)
[2017-03-02] MEDS: FAMOTIDINE 20 MG TAB PO SCH ×2 (08:35→20:27)
[2017-03-02] MEDS: levETIRAcetam 1000 MG INJ 100 ML IV SCH ×2 (08:35→20:27)
[2017-03-02] MEDS: LACTULOSE SYRUP 20 GM/30 ML CUP PO SCH (08:35)
[2017-03-02] MEDS: DOCUSATE SODIUM 100 MG/10 ML UDC PO SCH ×2 (08:35→20:27)
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
[2017-03-02] MEDS ORDERED: BUMETANIDE INJ 1 MG/4 ML VIAL IV PUSH ONE (09:45)
[2017-03-02] MEDS: SODIUM CHLOR 0.9% 1000 ML INJ 1,000 ML IV SCH (10:00)
--- NOTE | 2017-03-02 10:33 | HHI.PR ---
Neuropsych Emotional Emotional: UnabletoAssess: Emotional, Anxious/Fearful, Depressed/Sad, Hostile/ Resentful, Irritable/Angry/Frustrate, Labile, Constricted/Blunted Behavior Behavior: Unable to Asses: Behavior, Coping/Acceptance, Cooperative w/ Treatment, Motivation, Frustration Tolerance/[place], Impulsive/Agitated, Suicidal/ Homicidal Risk Cognitive Cognitive: Unable to Asses: Cognitive, Attention/Concentration, Confused/ Orientation, Insight/Awareness, Judgement/Problem-Solving, Memory Psychosocial Psychosocial: Unable to Asses: Psychosocial, Family/Other Adjustment, Realistic Expectation, Self-Esteem/Confidence Progress Notes/Response to Tx Contents of Sessions: Adjustment, Level of Consciousness Time with Patient: 15 minutes Premorbid psychological status Premorbid Cognitive, Emotional and Behavioral Status: Unable to Assess. The patient's family was not present to obtain this information. Behavioral Reactions of Patient and Family/Support System: Unable to Assess. The patients family is experiencing ongoing issues of adjustment given the nature of the injury, and this aspect of recovery will require ongoing monitoring. Emotional/Behavioral Status of Patient and Family/Support System: Unable to Assess. Pertinent issues, if appropriate to this patients clinical care, are described in detail above. Maximizing acute care outcome It is recommended that the patient be monitored for emergent behavioral impulsivity as the medical condition evolves. This patients neuropathological challenges may limit their rehabilitation potential going forward, and these challenges will require specialized therapeutic skills to maximize outcome. Additionally, the patients family is experiencing ongoing issues of adjustment given the traumatic nature of the injury, and they may benefit from ongoing psychological assistance. Anticipated Problems Ongoing areas of concern will include behavioral impulsivity, lack of insight and judgment, which is expected to improve with time and treatment. Presently , the patient remains intubated and sedated. Treatment Plan This clinician will continue to follow with you throughout the course of this patients rehabilitation treatment, and I will be available to meet with the patients family/support system to facilitate their understanding and the ongoing care of their family member. The goals of neuropsychological intervention shall be both educational and supportive to the family/support system as is deemed clinically appropriate. [facility] Level: I:No response-total assistance Impression 40 year old [place] s/p [place] [facility] [place] Diagnosis: (1) Major neurocognitive disorder as late effect of traumatic brain injury without behavioral disturbance Progress Note Narrative Ongoing follow-up of patient seen during daily trauma rounds. This is day 5 post injury. The patient exhibits occasional movement but no other neurobehavioral improvement. He remains intubated and sedated. His neuroimaging findings are ominous, and suggestive of poor chance for any meaningful neurobehavioral recovery. Palliative care is consulted. He is [place]. I will continue to follow. Nathan Valentine PhD Mar 02, 2017 10:33 am
[2017-03-02] MEDS: hydrALAZINE HCL 20 MG/ML VIAL IV PUSH SCH ×3 (10:41→20:27)
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
[2017-03-02] MEDS: METOPROLOL TARTRATE 5 MG/5 ML VIAL IV PUSH SCH ×2 (13:21→20:27)
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
[2017-03-03] VITALS (18 sets, daily range): BP systolic 123–146; BP diastolic 47–61; PULSE 80–109; RESP 16–19; TEMP 97.5–100.2; O2SAT 97–100
[2017-03-03] MEDS: hydrALAZINE HCL 20 MG/ML VIAL IV PUSH SCH ×4 (03:23→20:27)
[2017-03-03] MEDS: PROPOFOL 1000 MG/100 ML IV PRN ×2 (03:23→17:12)
[2017-03-03] MEDS: METOPROLOL TARTRATE 5 MG/5 ML VIAL IV PUSH SCH ×3 (05:35→20:27)
[2017-03-03 05:47] LABS: AUTOMATED NEUTROPHIL # 8.2 TH/MM3 (1.8-7.7); BASOPHIL % 0.2 % (0.0-2.0); EOSINOPHIL # 0.3 TH/MM3 (0-0.4); EOSINOPHIL % 2.8 % (0.0-4.0); HEMATOCRIT 28.4 % (39.0-51.0); HEMO FLAGS DIFF FINAL; LYMPH % 8.9 % (9.0-44.0); LYMPHOCYTE # 0.9 TH/MM3 (1.0-4.8); MEAN CELL VOLUME 92.1 FL (80.0-100.0); MEAN CORPUSCULAR HEMOGLOBIN 30.8 PG (27.0-34.0); MEAN CORPUSCULAR HGB CONC 33.4 % (32.0-36.0); MONO % 8.6 % (0.0-8.0); NEUT % 79.5 % (16.0-70.0); PLATELET COUNT 196 TH/MM3 (150-450); RED BLOOD COUNT 3.09 MIL/MM3 (4.50-5.90); RED CELL DISTRIBUTION WIDTH 14.7 % (11.6-17.2); WHITE BLOOD COUNT 10.4 TH/MM3 (4.0-11.0)
[2017-03-03 06:20] LABS: ALKALINE PHOSPHATASE 101 U/L (45-117); ALT (GPT) 102 U/L (12-78); ANION GAP 7 MEQ/L (5-15); AST (GOT) 80 U/L (15-37); BICARBONATE 27.1 MEQ/L (21.0-32.0); BLOOD UREA NITROGEN 19 MG/DL (7-18); CHLORIDE 116 MEQ/L (98-107); GLOMERULAR FILTRATION RATE 106 ML/MIN (>89); POTASSIUM 3.7 MEQ/L (3.5-5.1); SODIUM (NA) 150 MEQ/L (136-145); TOTAL BILIRUBIN ADULT 0.5 MG/DL (0.2-1.0)
[2017-03-03] MEDS: CHLORHEXIDINE 0.12% (ORAL KIT) 15 ML CUP MT SCH ×2 (08:00→20:27)
[2017-03-03] MEDS: SODIUM CHLORIDE 0.9% FLUSH 10 ML FLUSH IV FLUSH SCH ×2 (08:06→20:28)
[2017-03-03] MEDS: LACTULOSE SYRUP 20 GM/30 ML CUP PO SCH (08:06)
[2017-03-03] MEDS: levETIRAcetam 1000 MG INJ 100 ML IV SCH ×2 (08:15→20:27)
[2017-03-03] MEDS: FAMOTIDINE 20 MG TAB PO SCH ×2 (08:15→20:27)
[2017-03-03] MEDS: DOCUSATE SODIUM 100 MG/10 ML UDC PO SCH ×2 (08:15→20:27)
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
[2017-03-03] MEDS: SODIUM CHLOR 0.9% 1000 ML INJ 1,000 ML IV SCH (09:56)
[2017-03-03] MEDS: 3% SALINE INJ 500 ML IV SCH (10:08)
[2017-03-03] MEDS: fentaNYL 25 MCG/HR PATCH T-DERMAL SCH (10:08)
--- NOTE | 2017-03-03 12:36 | HHI.PR ---
Neuropsych Emotional Emotional: UnabletoAssess: Emotional, Anxious/Fearful, Depressed/Sad, Hostile/ Resentful, Irritable/Angry/Frustrate, Labile, Constricted/Blunted Behavior Behavior: Unable to Asses: Behavior, Coping/Acceptance, Cooperative w/ Treatment, Motivation, Frustration Tolerance/[place], Impulsive/Agitated, Suicidal/ Homicidal Risk Cognitive Cognitive: Unable to Asses: Cognitive, Attention/Concentration, Confused/ Orientation, Insight/Awareness, Judgement/Problem-Solving, Memory Psychosocial Psychosocial: Unable to Asses: Psychosocial, Family/Other Adjustment, Realistic Expectation, Self-Esteem/Confidence Progress Notes/Response to Tx Contents of Sessions: Adjustment, Level of Consciousness Time with Patient: 15 minutes Premorbid psychological status Premorbid Cognitive, Emotional and Behavioral Status: Unable to Assess. The patient's family was not present to obtain this information. Behavioral Reactions of Patient and Family/Support System: Unable to Assess. The patients family is experiencing ongoing issues of adjustment given the nature of the injury, and this aspect of recovery will require ongoing monitoring. Emotional/Behavioral Status of Patient and Family/Support System: Unable to Assess. Pertinent issues, if appropriate to this patients clinical care, are described in detail above. Maximizing acute care outcome It is recommended that the patient be monitored for emergent behavioral impulsivity as the medical condition evolves. This patients neuropathological challenges may limit their rehabilitation potential going forward, and these challenges will require specialized therapeutic skills to maximize outcome. Additionally, the patients family is experiencing ongoing issues of adjustment given the traumatic nature of the injury, and they may benefit from ongoing psychological assistance. Anticipated Problems Ongoing areas of concern will include behavioral impulsivity, lack of insight and judgment, which is expected to improve with time and treatment. Presently , the patient remains intubated and sedated. Treatment Plan This clinician will continue to follow with you throughout the course of this patients rehabilitation treatment, and I will be available to meet with the patients family/support system to facilitate their understanding and the ongoing care of their family member. The goals of neuropsychological intervention shall be both educational and supportive to the family/support system as is deemed clinically appropriate. [facility] Level: I:No response-total assistance Impression 40 year old [place] s/p [place] [facility] [place] Diagnosis: (1) Major neurocognitive disorder as late effect of traumatic brain injury without behavioral disturbance Progress Note Narrative Ongoing follow-up of patient seen during daily trauma rounds. This is day 6 post injury. There has been no neurobehavioral change in this patient's status. The neuroimaging findings of brainstem hemorrhage is an ominous finding. From a clinical standpoint, this patient has no reasonable chance for a meaningful recovery. He remains a [place]. Palliative care has been consulted. I will continue to follow. Nathan Valentine PhD Mar 03, 2017 12:36 pm
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
[2017-03-03 16:14] LABS: BICARBONATE 27.5 MEQ/L (21.0-32.0); POTASSIUM 3.6 MEQ/L (3.5-5.1)
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
[2017-03-04] VITALS (19 sets, daily range): BP systolic 115–145; BP diastolic 50–63; PULSE 70–98; RESP 16–19; TEMP 96.6–99.3; O2SAT 94–99
[2017-03-04] MEDS: PROPOFOL 1000 MG/100 ML IV PRN ×3 (00:20→19:23)
[2017-03-04] MEDS: hydrALAZINE HCL 20 MG/ML VIAL IV PUSH SCH ×4 (03:17→21:09)
[2017-03-04 03:58] LABS: BICARBONATE 26.7 MEQ/L (21.0-32.0)
[2017-03-04] MEDS: METOPROLOL TARTRATE 5 MG/5 ML VIAL IV PUSH SCH ×3 (05:03→21:08)
[2017-03-04] MEDS: DOCUSATE SODIUM 100 MG/10 ML UDC PO SCH ×2 (09:00→21:09)
[2017-03-04] MEDS: LACTULOSE SYRUP 20 GM/30 ML CUP PO SCH (09:00)
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
[2017-03-04] MEDS: 3% SALINE INJ 500 ML IV SCH (09:56)
[2017-03-04] MEDS: FAMOTIDINE 20 MG TAB PO SCH ×2 (09:56→21:09)
[2017-03-04] MEDS: levETIRAcetam 1000 MG INJ 100 ML IV SCH ×2 (09:56→21:08)
[2017-03-04] MEDS: SODIUM CHLORIDE 0.9% FLUSH 10 ML FLUSH IV FLUSH SCH ×2 (09:56→21:00)
[2017-03-04] MEDS: CHLORHEXIDINE 0.12% (ORAL KIT) 15 ML CUP MT SCH ×2 (09:57→21:08)
[2017-03-04] MEDS: SODIUM CHLOR 0.9% 1000 ML INJ 1,000 ML IV SCH ×2 (10:00→19:00)
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
[2017-03-04 18:05] LABS: BICARBONATE 27.4 MEQ/L (21.0-32.0)
[2017-03-05] VITALS (19 sets, daily range): BP systolic 134–154; BP diastolic 54–84; PULSE 3–101; RESP 16–18; TEMP 96.8–99.5; O2SAT 96–99
[2017-03-05] MEDS: PROPOFOL 1000 MG/100 ML IV PRN ×3 (03:20→22:50)
[2017-03-05 04:22] LABS: BICARBONATE 29.4 MEQ/L (21.0-32.0)
[2017-03-05] MEDS: hydrALAZINE HCL 20 MG/ML VIAL IV PUSH SCH ×4 (04:30→22:07)
[2017-03-05] MEDS: METOPROLOL TARTRATE 5 MG/5 ML VIAL IV PUSH SCH ×3 (05:35→20:05)
[2017-03-05] MEDS: CHLORHEXIDINE 0.12% (ORAL KIT) 15 ML CUP MT SCH ×2 (08:27→20:05)
[2017-03-05] MEDS: levETIRAcetam 1000 MG INJ 100 ML IV SCH ×2 (08:27→20:05)
[2017-03-05] MEDS: SODIUM CHLORIDE 0.9% FLUSH 10 ML FLUSH IV FLUSH SCH ×2 (08:28→20:05)
[2017-03-05] MEDS: DOCUSATE SODIUM 100 MG/10 ML UDC PO SCH ×2 (08:28→20:05)
[2017-03-05] MEDS: LACTULOSE SYRUP 20 GM/30 ML CUP PO SCH (08:28)
[2017-03-05] MEDS: FAMOTIDINE 20 MG TAB PO SCH ×2 (08:29→20:05)
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
[2017-03-05 15:27] LABS: BICARBONATE 27.2 MEQ/L (21.0-32.0); POTASSIUM 4.1 MEQ/L (3.5-5.1)
[2017-03-06] VITALS (20 sets, daily range): BP systolic 133–151; BP diastolic 54–72; PULSE 79–121; RESP 16–22; TEMP 97.2–100.4; O2SAT 95–100
[2017-03-06] MEDS: hydrALAZINE HCL 20 MG/ML VIAL IV PUSH SCH ×4 (04:43→21:50)
[2017-03-06] MEDS: METOPROLOL TARTRATE 5 MG/5 ML VIAL IV PUSH SCH ×3 (05:00→20:10)
[2017-03-06] MEDS: SODIUM CHLOR 0.9% 1000 ML INJ 1,000 ML IV SCH (06:15)
[2017-03-06] MEDS: PROPOFOL 1000 MG/100 ML IV PRN (06:35)
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
[2017-03-06] MEDS: CHLORHEXIDINE 0.12% (ORAL KIT) 15 ML CUP MT SCH ×2 (09:10→20:10)
[2017-03-06] MEDS: FAMOTIDINE 20 MG TAB PO SCH ×2 (09:10→20:11)
[2017-03-06] MEDS: LACTULOSE SYRUP 20 GM/30 ML CUP PO SCH (09:10)
[2017-03-06] MEDS: DOCUSATE SODIUM 100 MG/10 ML UDC PO SCH ×2 (09:10→20:11)
[2017-03-06] MEDS: SODIUM CHLORIDE 0.9% FLUSH 10 ML FLUSH IV FLUSH SCH ×2 (09:11→20:10)
[2017-03-06] MEDS: levETIRAcetam 1000 MG INJ 100 ML IV SCH ×2 (09:12→20:10)
[2017-03-06] MEDS: REMOVE OLD DURAGESIC (FENTANYL) PATCH T-DERMAL SCH (11:00)
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
[2017-03-06] MEDS: fentaNYL 25 MCG/HR PATCH T-DERMAL SCH (12:36)
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
[2017-03-07] VITALS (17 sets, daily range): BP systolic 134–162; BP diastolic 58–72; PULSE 81–110; RESP 20–22; TEMP 98.4–101; O2SAT 95–99
[2017-03-07] MEDS: hydrALAZINE HCL 20 MG/ML VIAL IV PUSH SCH ×4 (04:15→21:25)
[2017-03-07 04:19] LABS: AUTOMATED NEUTROPHIL # 11.2 TH/MM3 (1.8-7.7); BASOPHIL # 0.1 TH/MM3 (0-0.2); BASOPHIL % 0.4 % (0.0-2.0); EOSINOPHIL # 0.4 TH/MM3 (0-0.4); EOSINOPHIL % 3.1 % (0.0-4.0); HEMATOCRIT 27.8 % (39.0-51.0); HEMO FLAGS DIFF FINAL; LYMPH % 6.8 % (9.0-44.0); LYMPHOCYTE # 0.9 TH/MM3 (1.0-4.8); MEAN CELL VOLUME 92.2 FL (80.0-100.0); MEAN CORPUSCULAR HEMOGLOBIN 30.3 PG (27.0-34.0); MEAN CORPUSCULAR HGB CONC 32.8 % (32.0-36.0); MONO % 7.5 % (0.0-8.0); NEUT % 82.2 % (16.0-70.0); PLATELET COUNT 288 TH/MM3 (150-450); RED BLOOD COUNT 3.01 MIL/MM3 (4.50-5.90); RED CELL DISTRIBUTION WIDTH 14.5 % (11.6-17.2); WHITE BLOOD COUNT 13.6 TH/MM3 (4.0-11.0)
[2017-03-07 04:35] LABS: BICARBONATE 27.7 MEQ/L (21.0-32.0)
[2017-03-07] MEDS: METOPROLOL TARTRATE 5 MG/5 ML VIAL IV PUSH SCH ×3 (04:43→20:35)
[2017-03-07] MEDS: SODIUM CHLORIDE 0.9% FLUSH 10 ML FLUSH IV FLUSH SCH ×2 (08:46→20:35)
[2017-03-07] MEDS: levETIRAcetam 1000 MG INJ 100 ML IV SCH ×2 (08:46→20:35)
[2017-03-07] MEDS: FAMOTIDINE 20 MG TAB PO SCH ×2 (08:47→20:36)
[2017-03-07] MEDS: DOCUSATE SODIUM 100 MG/10 ML UDC PO SCH ×2 (08:47→20:36)
[2017-03-07] MEDS: LACTULOSE SYRUP 20 GM/30 ML CUP PO SCH (08:47)
[2017-03-07] MEDS: CHLORHEXIDINE 0.12% (ORAL KIT) 15 ML CUP MT SCH ×2 (08:48→20:35)
[2017-03-07] MEDS: SODIUM CHLOR 0.9% 1000 ML INJ 1,000 ML IV SCH (10:19)
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
[2017-03-08] VITALS (17 sets, daily range): BP systolic 126–145; BP diastolic 54–73; PULSE 84–112; RESP 18–23; TEMP 97.5–100.2; O2SAT 95–100
[2017-03-08] MEDS: hydrALAZINE HCL 20 MG/ML VIAL IV PUSH SCH ×4 (03:08→22:11)
[2017-03-08] MEDS: METOPROLOL TARTRATE 5 MG/5 ML VIAL IV PUSH SCH ×3 (04:42→20:13)
[2017-03-08] MEDS: CHLORHEXIDINE 0.12% (ORAL KIT) 15 ML CUP MT SCH ×2 (08:00→20:00)
[2017-03-08] MEDS: SODIUM CHLORIDE 0.9% FLUSH 10 ML FLUSH IV FLUSH SCH ×2 (09:00→20:13)
[2017-03-08] MEDS: DOCUSATE SODIUM 100 MG/10 ML UDC PO SCH ×2 (09:14→20:13)
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
[2017-03-08] MEDS: SODIUM CHLOR 0.9% 1000 ML INJ 1,000 ML IV SCH (09:15)
[2017-03-08] MEDS: FAMOTIDINE 20 MG TAB PO SCH ×2 (09:15→20:14)
[2017-03-08] MEDS: LACTULOSE SYRUP 20 GM/30 ML CUP PO SCH (09:15)
[2017-03-08] MEDS: levETIRAcetam 1000 MG INJ 100 ML IV SCH ×2 (09:15→20:13)
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
[2017-03-09] VITALS (17 sets, daily range): BP systolic 122–132; BP diastolic 54–86; PULSE 74–96; RESP 16–20; TEMP 97.3–99; O2SAT 95–100
[2017-03-09] MEDS: hydrALAZINE HCL 20 MG/ML VIAL IV PUSH SCH ×4 (04:22→22:01)
[2017-03-09] MEDS: METOPROLOL TARTRATE 5 MG/5 ML VIAL IV PUSH SCH ×4 (04:55→20:10)
[2017-03-09] MEDS: DOCUSATE SODIUM 100 MG/10 ML UDC PO SCH ×2 (10:46→20:10)
[2017-03-09] MEDS: levETIRAcetam 1000 MG INJ 100 ML IV SCH ×2 (10:46→20:10)
[2017-03-09] MEDS: FAMOTIDINE 20 MG TAB PO SCH ×2 (10:46→20:21)
[2017-03-09] MEDS: LACTULOSE SYRUP 20 GM/30 ML CUP PO SCH (10:47)
[2017-03-09] MEDS: CHLORHEXIDINE 0.12% (ORAL KIT) 15 ML CUP MT SCH ×2 (10:48→20:09)
[2017-03-09] MEDS: SODIUM CHLORIDE 0.9% FLUSH 10 ML FLUSH IV FLUSH SCH ×2 (10:48→20:10)
[2017-03-09] MEDS: SODIUM CHLOR 0.9% 1000 ML INJ 1,000 ML IV SCH (10:49)
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
[2017-03-09] MEDS: REMOVE OLD DURAGESIC (FENTANYL) PATCH T-DERMAL SCH (11:00)
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
[2017-03-10] VITALS (18 sets, daily range): BP systolic 132–144; BP diastolic 57–69; PULSE 94–126; RESP 16–24; TEMP 98.3–102.7; O2SAT 96–99
[2017-03-10] MEDS: hydrALAZINE HCL 20 MG/ML VIAL IV PUSH SCH ×4 (03:14→23:03)
[2017-03-10] MEDS: METOPROLOL TARTRATE 5 MG/5 ML VIAL IV PUSH SCH ×3 (04:08→20:28)
[2017-03-10] MEDS: CHLORHEXIDINE 0.12% (ORAL KIT) 15 ML CUP MT SCH ×2 (07:57→20:29)
[2017-03-10] MEDS: SODIUM CHLORIDE 0.9% FLUSH 10 ML FLUSH IV FLUSH SCH ×2 (09:00→20:28)
[2017-03-10] MEDS: SODIUM CHLOR 0.9% 1000 ML INJ 1,000 ML IV SCH (10:00)
[2017-03-10] MEDS: levETIRAcetam 1000 MG INJ 100 ML IV SCH ×2 (10:19→20:28)
[2017-03-10] MEDS: LACTULOSE SYRUP 20 GM/30 ML CUP PO SCH (10:19)
[2017-03-10] MEDS: FAMOTIDINE 20 MG TAB PO SCH ×2 (10:20→20:28)
[2017-03-10] MEDS: DOCUSATE SODIUM 100 MG/10 ML UDC PO SCH ×2 (10:20→20:28)
[2017-03-10] MEDS: ACETAMINOPHEN 1000 MG/100 ML 100 ML IV PRN (13:36)
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
[2017-03-11] VITALS (9 sets, daily range): BP systolic 115–128; BP diastolic 56–65; PULSE 93–113; RESP 16–21; TEMP 98.5–102.3; O2SAT 97–99
[2017-03-11] MEDS: hydrALAZINE HCL 20 MG/ML VIAL IV PUSH SCH ×2 (04:00→10:07)
[2017-03-11] MEDS: METOPROLOL TARTRATE 5 MG/5 ML VIAL IV PUSH SCH (05:06)
[2017-03-11 05:56] LABS: MAGNESIUM 2.5 MG/DL (1.5-2.5)
[2017-03-11] MEDS: CHLORHEXIDINE 0.12% (ORAL KIT) 15 ML CUP MT SCH (08:00)
[2017-03-11] MEDS: ACETAMINOPHEN 1000 MG/100 ML 100 ML IV PRN (08:20)
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
[2017-03-11] MEDS: SODIUM CHLOR 0.9% 1000 ML INJ 1,000 ML IV SCH (10:00)
[2017-03-11] MEDS: LACTULOSE SYRUP 20 GM/30 ML CUP PO SCH (10:06)
[2017-03-11] MEDS: levETIRAcetam 1000 MG INJ 100 ML IV SCH (10:06)
[2017-03-11] MEDS: SODIUM CHLORIDE 0.9% FLUSH 10 ML FLUSH IV FLUSH SCH (10:07)
[2017-03-11] MEDS: FAMOTIDINE 20 MG TAB PO SCH (10:07)
[2017-03-11] MEDS: DOCUSATE SODIUM 100 MG/10 ML UDC PO SCH (10:07)
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
[2017-03-11] MEDS ORDERED: ACETAMINOPHEN 650 MG SUPP RECTAL PRN (12:00)
[2017-03-11] MEDS ORDERED: HYOSCYAMINE 0.5 MG/ML AMP IV PUSH PRN (12:00)
[2017-03-11] MEDS ORDERED: LORazepam 2 MG/ML VIAL IV PUSH SCH (12:00)
[2017-03-11] MEDS ORDERED: FUROSEMIDE 20 MG/2 ML VIAL IV PUSH PRN (12:00)
[2017-03-11] MEDS ORDERED: HYOSCYAMINE 0.5 MG/ML AMP IV PUSH ONE (12:00)
[2017-03-11] MEDS ORDERED: MORPHINE SULFATE 8 MG/ML INJ IV PUSH PRN (12:00)
[2017-03-11] MEDS ORDERED: LORazepam 2 MG/ML VIAL IV PUSH PRN ×3 (12:00)
[2017-03-11] MEDS ORDERED: MORPHINE SULFATE 8 MG/ML INJ IV PUSH ONE (12:00)
[2017-03-11] MEDS ORDERED: BISACODYL 10 MG SUPP RECTAL PRN (12:00)
[2017-03-11] MEDS ORDERED: MORPHINE SULFATE 4 MG/ML INJ IV PUSH PRN (12:00)
[2017-03-11] MEDS ORDERED: LORazepam 2 MG/ML VIAL IV PUSH ONE ×2 (12:00→12:30)
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
[2017-03-11] MEDS ORDERED: MORPHINE SULFATE 4 MG/ML INJ IV PUSH ONE (12:30)
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
== END 2017-03-11 16:53 | disposition expired | DRG 955 ==
LOC: NEPI 07:30 → EDBD 07:59 → NEDA 07:59 → N03B 08:12
PROVIDERS: ADMIT Surgery; ATTEND Surgery
PROC: 00N00ZZ Release Brain, Open Approach (ICD-10-PCS; 2017-02-25)
PROC: 00H032Z Insertion of Monitoring Device into Brain, Percutaneous Approach (ICD-10-PCS; 2017-02-25)
PROC: 4A103BD Monitoring of Intracranial Pressure, Percutaneous Approach (ICD-10-PCS; 2017-02-25)
PROC: 0T9B70Z Drainage of Bladder with Drainage Device, Via Natural or Artificial Opening (ICD-10-PCS; 2017-02-25)
PROC: 5A1955Z Respiratory Ventilation, Greater than 96 Consecutive Hours (ICD-10-PCS; 2017-02-25)
PROC: 00C40ZZ Extirpation of Matter from Intracranial Subdural Space, Open Approach (ICD-10-PCS; principal; 2017-02-25 10:24)
DX: S06.2X6A Diffuse traumatic brain injury with loss of consciousness greater than 24 hours without return to pre-existing conscious level with patient surviving, initial encounter (principal); S27.0XXA Traumatic pneumothorax, initial encounter; S06.6X6A Traumatic subarachnoid hemorrhage with loss of consciousness greater than 24 hours without return to pre-existing conscious level with patient surviving, initial encounter; J96.00 Acute respiratory failure, unspecified whether with hypoxia or hypercapnia; J69.0 Pneumonitis due to inhalation of food and vomit; G93.40 Encephalopathy, unspecified; Z99.11 Dependence on respirator [ventilator] status; S12.600A Unspecified displaced fracture of seventh cervical vertebra, initial encounter for closed fracture; E87.0 Hyperosmolality and hypernatremia; J43.9 Emphysema, unspecified; S06.5X6A Traumatic subdural hemorrhage with loss of consciousness greater than 24 hours without return to pre-existing conscious level with patient surviving, initial encounter; S06.4X6A Epidural hemorrhage with loss of consciousness greater than 24 hours without return to pre-existing conscious level with patient surviving, initial encounter; R56.9 Unspecified convulsions; S02.31XA Fracture of orbital floor, right side, initial encounter for closed fracture; S02.401A Maxillary fracture, unspecified side, initial encounter for closed fracture; S02.32XA Fracture of orbital floor, left side, initial encounter for closed fracture; V29.9XXA Motorcycle rider (driver) (passenger) injured in unspecified traffic accident, initial encounter; Y92.488 Other paved roadways as the place of occurrence of the external cause; Y93.89 Activity, other specified; I10 Essential (primary) hypertension; R00.1 Bradycardia, unspecified; S02.19XA Other fracture of base of skull, initial encounter for closed fracture; S00.81XA Abrasion of other part of head, initial encounter; R91.1 Solitary pulmonary nodule; S20.219A Contusion of unspecified front wall of thorax, initial encounter; Z51.5 Encounter for palliative care; F17.200 Nicotine dependence, unspecified, uncomplicated; Z74.01 Bed confinement status; Z66 Do not resuscitate; G93.89 Other specified disorders of brain; F01.50 Vascular dementia, unspecified severity, without behavioral disturbance, psychotic disturbance, mood disturbance, and anxiety
CPT/HCPCS: 36556; 36600; 61210; 70450; 70486; 70496; 70498; 71010; 71260; 72125; 72170; 74000; 74177; 80048; 80053; 80307; 82435; 82565; 82805; 82947; 83735; 83930; 84100; 84132; 84155; 84295; 84520; 85025; 85610; 86850; 86900; 86901; 86920; 87040; 87070; 87205; 87641; 90471; 90715; 93005; 94002; 94003; 94640; 94664; 94770; 95819; 96374; 99291; C9113; G0390; J0131; J0330; J0360; J0690; J1580; J1940; J1953; J1980; J2060; J2150; J2250; J2270; J2370; J2543; J3010; J3480; J7030; J7050; L0150; L0172; Q9967